=== PATIENT | male | born 1985 | race African-American/Black ===

== ENCOUNTER 2018-08-05 14:45 | Emergency (ER) | payer OTHER ==
[~2018-08-05] VITALS: Ht 180.3 cm; Wt 115.7 kg
[2018-08-05 15:17] VITALS: BP 160/87
--- NOTE | 2018-08-05 15:25 | PHYS DOC ---
Past Medical History Past Medical History: Hypertension Past Surgical History: No Surgical History Alcohol Use: None Drug Use: None Adult General Chief Complaint Chief Complaint: GI PROBLEM HPI HPI Patient is a 32 year old male with history of hypertension who presents today complaining of mild right upper quadrant abdominal pain with nausea and diarrhea that began 2 days ago. Patient denies any fever. Denies any melena. Patient states he has had similar symptoms a couple months ago, was seen at [facility], he states they did a gallbladder ultrasound which was negative , they did a Pipida which was negative. He states the symptoms had subsided but returned 2 days ago. Patient denies any fever. Review of Systems Review of Systems Constitutional: Denies fever or chills [] Eyes: Denies change in visual acuity, redness, or eye pain [] HENT: Denies nasal congestion or sore throat [] Respiratory: Denies cough or shortness of breath [] Cardiovascular: No additional information not addressed in HPI [] GI: Reports right upper quadrant abdominal pain, nausea, diarrhea, denies vomiting : Denies dysuria or hematuria [] Musculoskeletal: Denies back pain or joint pain [] Integument: Denies rash or skin lesions [] Neurologic: Denies headache, focal weakness or sensory changes [] All other systems were reviewed and found to be within normal limits, except as documented in this note. Current Medications Current Medications Current Medications Medications (Trade) Dose Ordered Sig/Jose Maria Start Time Stop Time Status Last Admin Dose Admin Famotidine (Pepcid Vial) 20 mg 1X ONCE 08/05/18 16:00 08/05/18 16:01 DC Fentanyl Citrate (Fentanyl 2ml Vial) 50 mcg 1X ONCE 08/05/18 16:00 08/05/18 16:01 DC Ondansetron HCl (Zofran) 4 mg 1X ONCE 08/05/18 16:00 08/05/18 16:01 DC Sodium Chloride 1,000 ml @ 1,000 mls/hr 1X ONCE 08/05/18 16:00 08/05/18 16:59 Allergies Allergies Allergies Coded Allergies Type Severity Reaction Last Updated Verified No Known Drug Allergies 08/05/18 No Physical Exam Physical Exam Constitutional: Well developed, well nourished, no acute distress, non-toxic appearance. [] HENT: Normocephalic, atraumatic, bilateral external ears normal, oropharynx moist, no oral exudates, nose normal. [] Eyes: PERRLA, EOMI, conjunctiva normal, no discharge. [] Neck: Normal range of motion, no tenderness, supple, no stridor. [] Cardiovascular:Heart rate regular rhythm, no murmur [] Lungs & Thorax: Bilateral breath sounds clear to auscultation [] Abdomen: Bowel sounds normal, soft, no right upper quadrant tenderness, negative Crooks sign, no right lower quadrant tenderness, negative psoas sign, negative obturator sign, no masses, no pulsatile masses. No guarding, no rebound tenderness Skin: Warm, dry, no erythema, no rash. [] Back: No tenderness, no CVA tenderness. [] Extremities: No tenderness, no cyanosis, no clubbing, ROM intact, no edema. [] Neurologic: Alert and oriented X 3, normal motor function, normal sensory function, no focal deficits noted. [] Psychologic: Affect normal, judgement normal, mood normal. [] Current Patient Data Vital Signs Vital Signs Date Time Temp Pulse Resp B/P (MAP) Pulse Ox O2 Delivery O2 Flow Rate FiO2 08/05/18 15:17 99.1 102 16 160/87 (111) 94 Room Air 99.1 Lab Values Laboratory Tests Test 08/05/18 15:29 08/05/18 15:39 Urine Collection Type Unknown Urine Color Yellow Urine Clarity Clear Urine pH 6.0 Urine Specific [place] >=1.030 Urine Protein Negative mg/dL (NEG-TRACE) Urine Glucose (UA) Negative mg/dL (NEG) Urine Ketones (Stick) Negative mg/dL (NEG) Urine Blood Negative (NEG) Urine Nitrite Negative (NEG) Urine Bilirubin Negative (NEG) Urine Urobilinogen Dipstick 0.2 mg/dL (0.2 mg/dL) Urine Leukocyte Esterase Negative (NEG) Urine RBC Occ /HPF (0-2) Urine WBC 1-4 /HPF (0-4) Urine Squamous Epithelial Cells Occ /LPF Urine Bacteria 0 /HPF (0-FEW) Urine Mucus Marked /LPF Urine Opiates Screen Neg (NEG) Urine Methadone Screen Neg (NEG) Urine Barbiturates Neg (NEG) Urine Phencyclidine Screen Neg (NEG) Urine Amphetamine/Methamphetamine Neg (NEG) Urine Benzodiazepines Screen Neg (NEG) Urine Cocaine Screen Neg (NEG) Urine Cannabinoids Screen Neg (NEG) Urine Ethyl Alcohol Neg (NEG) White Blood Count 8.1 x10^3/uL (4.0-11.0) Red Blood Count 5.40 x10^6/uL (4.30-5.70) Hemoglobin 15.1 g/dL (13.0-17.5) Hematocrit 44.6 % (39.0-53.0) Mean Corpuscular Volume 83 fL (79-100) Mean Corpuscular Hemoglobin 28 pg (25-35) Mean Corpuscular Hemoglobin Concent 34 g/dL (31-37) Red Cell Distribution Width 15.0 % (11.5-14.5) H Platelet Count 200 x10^3/uL (140-400) Neutrophils (%) (Auto) 68 % (31-73) Lymphocytes (%) (Auto) 22 % (24-48) L Monocytes (%) (Auto) 8 % (0-9) Eosinophils (%) (Auto) 1 % (0-3) Basophils (%) (Auto) 1 % (0-3) Neutrophils # (Auto) 5.5 x10^3uL (1.8-7.7) Lymphocytes # (Auto) 1.8 x10^3/uL (1.0-4.8) Monocytes # (Auto) 0.7 x10^3/uL (0.0-1.1) Eosinophils # (Auto) 0.0 x10^3/uL (0.0-0.7) Basophils # (Auto) 0.1 x10^3/uL (0.0-0.2) Sodium Level 139 mmol/L (136-145) Potassium Level 3.8 mmol/L (3.5-5.1) Chloride Level 100 mmol/L (98-107) Carbon Dioxide Level 27 mmol/L (21-32) Anion Gap 12 (6-14) Blood Urea Nitrogen 16 mg/dL (8-26) Creatinine 1.1 mg/dL (0.7-1.3) Estimated GFR (Cockcroft-Gault) 95.1 BUN/Creatinine Ratio 15 (6-20) Glucose Level 118 mg/dL (70-99) H Calcium Level 9.5 mg/dL (8.5-10.1) Total Bilirubin 0.7 mg/dL (0.2-1.0) Aspartate Amino Transferase (AST) 28 U/L (15-37) Alanine Aminotransferase (ALT) 46 U/L (16-63) Alkaline Phosphatase 77 U/L (46-116) Total Protein 8.0 g/dL (6.4-8.2) Albumin 4.0 g/dL (3.4-5.0) Albumin/Globulin Ratio 1.0 (1.0-1.7) Lipase 98 U/L (73-393) Ethyl Alcohol Level < 10 mg/dL (0-10) Laboratory Tests 08/05/18 15:39 Laboratory Tests 08/05/18 15:39 EKG EKG [] Radiology/Procedures Radiology/Procedures []PROCEDURE: ABDOMEN LTD Examination: Ultrasound abdomen limited HISTORY: History of right upper quadrant pain COMPARISON: None available FINDINGS: The visualized pancreas grossly appears unremarkable The right lobe of the liver measures 19.8 cm. Increased echogenicity noted throughout the liver likely hepatic steatosis. The visualized aorta, IVC are within normal limits of dimension. The right kidney measures 11.5 cm in length. The gallbladder and the common bile duct measures 4.4 mm in diameter. No evidence of gallstones. The gallbladder wall thickness measures 1.8 mm IMPRESSION: 1. Hepatomegaly with hepatic steatosis. Electronically signed by: Nakul Rodney MD (08/05/2018 4:17 PM) [place] [id number] DICTATED and SIGNED BY: NAKUL RODNEY MD DATE: 08/05/181614 Course & Med Decision Making Course & Med Decision Making Pertinent Labs and Imaging studies reviewed. (See chart for details) This is a 32-year-old male patient presenting to the ED today with right upper quadrant abdominal pain, nausea and diarrhea for 2 days. CBC, CMP, lipase with no acute findings. Urine analysis is negative for infection. Abdominal ultrasound was negative for gallstones/ cholelithiasis, noted for hepatomegaly. He is afebrile. Patient was given a GI specialist to follow-up with. Instructed to return to the ED at any point symptoms worsen. Discharged with Zofran. Melania Disclaimer Dragon Disclaimer This electronic medical record was generated, in whole or in part, using a voice recognition dictation system. Departure Departure Impression: Primary Impression: Right upper quadrant pain Additional Impressions: Nausea Diarrhea Disposition: 01 HOME, SELF-CARE Condition: STABLE Referrals: UNKNOWN PCP NAME (PCP) ADAM WATSON MD Follow-up in 1-2 weeks. Patient Instructions: Abdominal Pain, Diarrhea, [id number] Additional Instructions: You were evaluated in the emergency room for abdominal pain, nausea and diarrhea. Your abdominal ultrasound was negative for any acute findings. Your labs were negative for any acute findings. We sent you home with Zofran, take it as needed for nausea vomiting. You can take [id number] Imodium as needed for diarrhea. Follow-up with your doctor or the provided specialist in one week if symptoms continue. Scripts Ondansetron (ONDANSETRON ODT) 4 Mg Tab.rapdis 1 TAB PO PRN Q6-8HRS, #16 TAB Prov: RAD MARRUFO APRN 08/05/18 Problem Qualifiers Additional Impressions: Diarrhea Diarrhea type: unspecified type Qualified Codes: R19.7 - Diarrhea, unspecified RAD MARRUFO APRN Aug 05, 2018 15:25
[2018-08-05 15:39] LABS: BILIRUBIN,URINE NEGATIVE (NEG); CLARITY,URINE CLEAR; COLOR,URINE YELLOW; NITRITE,URINE NEGATIVE (NEG); PROTEIN,URINE NEGATIVE (NEG-TRACE); UROBILINOGEN,URINE 0.2 mg/dL (0.2 mg/dL)
[2018-08-05 15:45] LABS: SQUAMOUS EPITHELIAL CELL,UR OCC /LPF
[2018-08-05 15:46] LABS: RBC,URINE OCC /HPF (0-2)
[2018-08-05 15:47] LABS: BACTERIA,URINE 0 /HPF (0-FEW)
[2018-08-05 15:48] LABS: BASO # 0.1 x10^3/uL (0.0-0.2); BASO % 1 % (0-3); EOS % 1 % (0-3); HEMATOCRIT 44.6 % (39.0-53.0); HEMOGLOBIN 15.1 g/dL (13.0-17.5); LYMPH # 1.8 x10^3/uL (1.0-4.8); LYMPH % 22 % (24-48); MEAN CORPUSCULAR HEMOGLOBIN 28 pg (25-35); MEAN CORPUSCULAR HGB CONC 34 g/dL (31-37); MEAN CORPUSCULAR VOLUME 83 fL (79-100); MONO # 0.7 x10^3/uL (0.0-1.1); MONO % 8 % (0-9); NEUT # 5.5 x10^3uL (1.8-7.7); NEUT % 68 % (31-73); PLATELET COUNT 200 x10^3/uL (140-400); WHITE BLOOD COUNT 8.1 x10^3/uL (4.0-11.0)
[2018-08-05 15:48] LABS: BARBITURATES NEG (NEG); BENZODIAZEPINES NEG (NEG); CANNABINOIDS NEG (NEG); COCAINE NEG (NEG); METHADONE NEG (NEG); OPIATES NEG (NEG); PHENCYCLIDINE NEG (NEG)
[2018-08-05 15:54] LABS: AMPHETAMINE/METHAMPHETAMINE NEG (NEG)
[2018-08-05] MEDS ORDERED: FAMOTIDINE 20 MG/2 ML VIAL IVP ONE (16:00)
[2018-08-05] MEDS ORDERED: ONDANSETRON PF 4 MG/2 ML VIAL. IV ONE (16:00)
[2018-08-05] MEDS ORDERED: fentaNYL PF VIAL 100 MCG/2 ML VIAL IV ONE (16:00)
[2018-08-05] MEDS ORDERED: IV NORMAL SALINE 1000ML BAG 1,000 ML IV ONE (16:00)
[2018-08-05 16:06] LABS: CALCIUM 9.5 mg/dL (8.5-10.1); CREATININE 1.1 mg/dL (0.7-1.3); GFR 95.1; POTASSIUM 3.8 mmol/L (3.5-5.1)
[2018-08-05 16:08] LABS: TOTAL BILIRUBIN 0.7 mg/dL (0.2-1.0)
--- NOTE | 2018-08-05 16:21 | RAD ---
Examination: Ultrasound abdomen limited HISTORY: History of right upper quadrant pain COMPARISON: None available FINDINGS: The visualized pancreas grossly appears unremarkable The right lobe of the liver measures 19.8 cm. Increased echogenicity noted throughout the liver likely hepatic steatosis. The visualized aorta, IVC are within normal limits of dimension. The right kidney measures 11.5 cm in length. The gallbladder and the common bile duct measures 4.4 mm in diameter. No evidence of gallstones. The gallbladder wall thickness measures 1.8 mm IMPRESSION: 1. Hepatomegaly with hepatic steatosis. Electronically signed by: Nakul Rodney MD (08/05/2018 4:17 PM) [place] [id number]
[2018-08-05] MEDS ORDERED: ONDA4TAB12 PO (16:33)
== END 2018-08-05 17:01 | disposition home or self-care (01) ==
LOC: ER 14:45
DX: R10.11 Right upper quadrant pain (principal); R19.7 Diarrhea, unspecified; R11.0 Nausea; I10 Essential (primary) hypertension
CPT/HCPCS: 36415; 76705; 80053; 80307; 81001; 83690; 85025; 96361; 96374; 96375; 99284; G0480; J2405; J3010; J3490; J7030

== ENCOUNTER 2019-10-17 16:02 | Emergency (ER) | payer OTHER ==
[~2019-10-17] VITALS: Ht 180.3 cm; Wt 113.6 kg
[~2019-10-17 16:02] MED LIST: ONDA4TAB12 PO
[2019-10-17] MEDS ORDERED: THIAMINE INJ 100 MG in IV DEXTROSE 5% 50 ML IV ONE (16:30)
[2019-10-17] MEDS ORDERED: IV NORMAL SALINE 1000ML BAG 1,000 ML IV ONE ×2 (16:30→16:45)
--- NOTE | 2019-10-17 16:34 | PHYS DOC ---
Past Medical History Past Medical History: Hypertension Past Surgical History: No Surgical History Smoking Status: Never Smoker Alcohol Use: None Drug Use: None Adult General Chief Complaint Chief Complaint: NEURO SYMPTOMS/DEFICITS [facility] HPI Patient is a 33 year old recommended presents to the ER secondary to right-sided head pain, right facial numbness, right upper extremity numbness nicki t has been ongoing for the past 4 days and seemed to worsen today. Patient denies visual disturbance, difficulty with speech, other neurologic deficits. He admits to drinking a sixpack of beer daily for the past 3 weeks and reports binge drinking previously but had been sober for the past 6 months. He denies chest pain or shortness of breath. He does a history of pulmonary embolisms and currently takes xarelto. Review of Systems Review of Systems All other ROS is negative unless otherwise stated in HPI Current Medications Current Medications Current Medications Medications (Trade) Dose Ordered Sig/Jose Maria Start Time Stop Time Status Last Admin Dose Admin Ketorolac Tromethamine (Toradol 30mg Vial) 30 mg 1X ONCE 10/17/19 17:45 10/17/19 17:46 10/17/19 17:42 30 MG Sodium Chloride 1,000 ml @ 1,000 mls/hr 1X ONCE 10/17/19 16:45 10/17/19 17:44 Thiamine HCl 100 mg/Dextrose 51 ml @ 102 mls/hr 1X ONCE 10/17/19 16:30 10/17/19 16:59 DC 10/17/19 17:06 102 MLS/HR Allergies Allergies Allergies Coded Allergies Type Severity Reaction Last Updated Verified No Known Drug Allergies 08/05/18 No Physical Exam Physical Exam See above Constitutional: Well developed, well nourished, no acute distress, non-toxic appearance. [] HENT: Normocephalic, atraumatic, bilateral external ears normal, oropharynx moist, no oral exudates, nose normal. [] Eyes: PERRLA, EOMI, conjunctiva normal, no discharge. [] Neck: Normal range of motion, no tenderness, supple, no stridor. [] Cardiovascular:Heart rate regular rhythm, no murmur [] Lungs & Thorax: Bilateral breath sounds clear to auscultation [] Abdomen: Bowel sounds normal, soft, no tenderness, no masses, no pulsatile masses. [] Skin: Warm, dry, no erythema, no rash. [] Back: No tenderness, no CVA tenderness. [] Extremities: No tenderness, no cyanosis, no clubbing, ROM intact, no edema. [] Neurologic: Alert and oriented X 3, normal motor function, altered sensation on the right side of the face and the right upper extremity Psychologic: Affect normal, judgement normal, mood normal. [] Current Patient Data Vital Signs Vital Signs Date Time Temp Pulse Resp B/P (MAP) Pulse Ox O2 Delivery O2 Flow Rate FiO2 10/17/19 16:15 98.6 107 18 161/102 (121) 99 Room Air 98.6 Lab Values Laboratory Tests Test 10/17/19 16:55 10/17/19 17:00 White Blood Count 3.9 x10^3/uL (4.0-11.0) L Red Blood Count 5.13 x10^6/uL (4.30-5.70) Hemoglobin 14.6 g/dL (13.0-17.5) Hematocrit 43.9 % (39.0-53.0) Mean Corpuscular Volume 86 fL (79-100) Mean Corpuscular Hemoglobin 28 pg (25-35) Mean Corpuscular Hemoglobin Concent 33 g/dL (31-37) Red Cell Distribution Width 16.9 % (11.5-14.5) H Platelet Count 214 x10^3/uL (140-400) Neutrophils (%) (Auto) 44 % (31-73) Lymphocytes (%) (Auto) 43 % (24-48) Monocytes (%) (Auto) 11 % (0-9) H Eosinophils (%) (Auto) 0 % (0-3) Basophils (%) (Auto) 3 % (0-3) Neutrophils # (Auto) 1.7 x10^3/uL (1.8-7.7) L Lymphocytes # (Auto) 1.7 x10^3/uL (1.0-4.8) Monocytes # (Auto) 0.4 x10^3/uL (0.0-1.1) Eosinophils # (Auto) 0.0 x10^3/uL (0.0-0.7) Basophils # (Auto) 0.1 x10^3/uL (0.0-0.2) Prothrombin Time 22.6 SEC (11.7-14.0) H Prothrombin Time INR 2.0 (0.8-1.1) H Activated Partial Thromboplast Time 35 SEC (24-38) Sodium Level 145 mmol/L (136-145) Potassium Level 3.8 mmol/L (3.5-5.1) Chloride Level 104 mmol/L (98-107) Carbon Dioxide Level 28 mmol/L (21-32) Anion Gap 13 (6-14) Blood Urea Nitrogen 10 mg/dL (8-26) Creatinine 0.9 mg/dL (0.7-1.3) Estimated GFR (Cockcroft-Gault) 119.1 BUN/Creatinine Ratio 11 (6-20) Glucose Level 242 mg/dL (70-99) H Calcium Level 8.0 mg/dL (8.5-10.1) L Magnesium Level 1.7 mg/dL (1.8-2.4) L Total Bilirubin 0.9 mg/dL (0.2-1.0) Aspartate Amino Transferase (AST) 310 U/L (15-37) H Alanine Aminotransferase (ALT) 207 U/L (16-63) H Alkaline Phosphatase 55 U/L (46-116) Troponin I Quantitative < 0.017 ng/mL (0.000-0.055) Total Protein 6.5 g/dL (6.4-8.2) Albumin 3.3 g/dL (3.4-5.0) L Albumin/Globulin Ratio 1.0 (1.0-1.7) Thyroid Stimulating Hormone (TSH) 0.281 uIU/mL (0.358-3.74) L Free Thyroxine 1.17 ng/dL (0.76-1.46) Ethyl Alcohol Level 319 mg/dL (0-10) H Urine Opiates Screen Neg (NEG) Urine Methadone Screen Neg (NEG) Urine Barbiturates Neg (NEG) Urine Phencyclidine Screen Neg (NEG) Urine Amphetamine/Methamphetamine Neg (NEG) Urine Benzodiazepines Screen Neg (NEG) Urine Cocaine Screen Neg (NEG) Urine Cannabinoids Screen Neg (NEG) Urine Ethyl Alcohol Pos (NEG) Laboratory Tests 10/17/19 16:55 Laboratory Tests 10/17/19 16:55 EKG EKG [] Radiology/Procedures Radiology/Procedures Examination: CT HEAD WO CONTRAST History: Right-sided facial and arm numbness Comparison/Correlation: None Findings: Axial images of the head were obtained without contrast. Ventricles are normal size. No intracranial hemorrhage, nodules, or mass effect. Bony structures are unremarkable. Impression: No acute process. [] Course & Med Decision Making Course & Med Decision Making Pertinent Labs and Imaging studies reviewed. (See chart for details) This patient has complaint of right-sided facial numbness and right upper extremity numbness. He has a history of pulmonary embolisms. CT scan of his head, check labs, give IV fluids and thiamine due to alcohol abuse history. 1737: This patient's workup is complete at this time and it does appear the patient is rather intoxicated. His alcohol level is 319 which is likely intermittent to some of his symptoms. His CAT scan is normal. He did have elevation in his liver enzymes which is likely from alcohol abuse. He also has mild hyperglycemia which could be from alcohol abuse or diabetes. His calcium and magnesium were slightly low but should not be causing the issues the patient is presenting with today. Free T4 is also slightly low in the setting of normal TSH. At this time the patient is stable for discharge and will be discharged home and is to follow-up for worsening symptoms with FP physician or return to the ER. Dragon Disclaimer Dragon Disclaimer This electronic medical record was generated, in whole or in part, using a voice recognition dictation system. Departure Departure Impression: Primary Impression: Paresthesia of right upper extremity Additional Impressions: Facial paresthesia Headache Alcohol abuse Alcohol intoxication Transaminitis Hyperglycemia Subclinical hypothyroidism Disposition: 01 HOME, SELF-CARE Condition: STABLE Patient Instructions: Alcohol Withdrawal, Paresthesia Additional Instructions: Please stop drinking. Return to the ED for worsening symptoms. Follow up with a PCP from list provided. Problem Qualifiers KETTY MON DO Oct 17, 2019 16:34
[2019-10-17 17:08] LABS: BASO # 0.1 x10^3/uL (0.0-0.2); BASO % 3 % (0-3); EOS % 0 % (0-3); HEMATOCRIT 43.9 % (39.0-53.0); HEMOGLOBIN 14.6 g/dL (13.0-17.5); LYMPH # 1.7 x10^3/uL (1.0-4.8); LYMPH % 43 % (24-48); MEAN CORPUSCULAR HEMOGLOBIN 28 pg (25-35); MEAN CORPUSCULAR HGB CONC 33 g/dL (31-37); MEAN CORPUSCULAR VOLUME 86 fL (79-100); MONO # 0.4 x10^3/uL (0.0-1.1); MONO % 11 % (0-9); NEUT # 1.7 x10^3/uL (1.8-7.7); NEUT % 44 % (31-73); PLATELET COUNT 214 x10^3/uL (140-400); RED BLOOD COUNT 5.13 x10^6/uL (4.30-5.70); RED CELL DISTRIBUTION WIDTH 16.9 % (11.5-14.5); WHITE BLOOD COUNT 3.9 x10^3/uL (4.0-11.0)
[2019-10-17 17:16] LABS: BARBITURATES NEG (NEG); BENZODIAZEPINES NEG (NEG); CANNABINOIDS NEG (NEG); COCAINE NEG (NEG); METHADONE NEG (NEG); OPIATES NEG (NEG); PHENCYCLIDINE NEG (NEG)
[2019-10-17 17:18] LABS: AMPHETAMINE/METHAMPHETAMINE NEG (NEG)
[2019-10-17 17:18] LABS: PROTHROMBIN TIME PATIENT 22.6 SEC (11.7-14.0)
[2019-10-17 17:20] LABS: CREATININE 0.9 mg/dL (0.7-1.3); GFR 119.1; POTASSIUM 3.8 mmol/L (3.5-5.1)
[2019-10-17 17:25] LABS: ALBUMIN 3.3 g/dL (3.4-5.0); MAGNESIUM 1.7 mg/dL (1.8-2.4); TOTAL BILIRUBIN 0.9 mg/dL (0.2-1.0); TOTAL PROTEIN 6.5 g/dL (6.4-8.2)
--- NOTE | 2019-10-17 17:25 | RAD ---
Examination: CT HEAD WO CONTRAST History: Right-sided facial and arm numbness Comparison/Correlation: None Findings: Axial images of the head were obtained without contrast. Ventricles are normal size. No intracranial hemorrhage, nodules, or mass effect. Bony structures are unremarkable. Impression: No acute process. Dr. Trevizo of the emergency Department was informed on 10/17/2019 5:21 PM. PQRS Compliance Statement: One or more of the following individualized dose reduction techniques were utilized for this examination: 1. Automated exposure control 2. Adjustment of the mA and/or kV according to patient size 3. Use of iterative reconstruction technique Electronically signed by: Juni Johnson MD (10/17/2019 5:22 PM) [id number]
[2019-10-17 17:32] LABS: FREE T4 1.17 ng/dL (0.76-1.46); THYROID STIM HORMONE (TSH) 0.281 uIU/mL (0.358-3.74)
[2019-10-17] MEDS ORDERED: KETOROLAC 30 MG/ML VIAL. IVP ONE (17:45)
[2019-10-17 19:22] VITALS: BP 162/98
--- NOTE | 2019-10-17 21:30 | EKG ---
[facility] [address] [place] [address] Test Date: 2019-10-17 Test Time: 16:40:09 Pat Name: NAEL ROSS Department: Room: Gender: M Tax [employer]: : 1985 Requested By: KETTY MON Order Number: [id number] Reading MD: Measurements Intervals [place] Rate: 105 P: -90 NV: 92 QRS: 23 QRSD: 86 T: 127 QT: 338 QTc: 451 Interpretive Statements SUPRAVENTRICULAR RHYTHM LVH WITH REPOLARIZATION ABNORMALITY QRS(T) CONTOUR ABNORMALITY CONSIDER ANTEROSEPTAL MYOCARDIAL DAMAGE ABNORMAL ECG RI6.01 No previous ECG available for comparison
== END 2019-10-17 20:00 | disposition home or self-care (01) ==
LOC: ER 16:02
DX: F10.229 Alcohol dependence with intoxication, unspecified (principal); R51 Headache; R20.2 Paresthesia of skin; R73.9 Hyperglycemia, unspecified; E02 Subclinical iodine-deficiency hypothyroidism; R74.0 Nonspecific elevation of levels of transaminase and lactic acid dehydrogenase [LDH]; I10 Essential (primary) hypertension
CPT/HCPCS: 36415; 70450; 80053; 80307; 83735; 84439; 84443; 84484; 85025; 85610; 85730; 93005; 96365; 96366; 96375; 99285; G0480; J1885; J7030